=== PATIENT | female | born 1965 | race Caucasian/White ===

== ENCOUNTER 2019-01-26 21:05 | Observation (INO) ==
[2019-01-26] MEDS ORDERED: *HR* Heparin 5,000 UNIT/ML VIAL IVP PRN (23:58)
[2019-01-26] MEDS ORDERED: Nitroglycerin 0.4 MG TAB.SUBL SL PRN (23:58)
[2019-01-27 01:02] LABS: Hematocrit 36.3 % (35.3-44.9); Hemoglobin 13.2 g/dL (11.5-15.4); Mean Corpuscular HGB Conc 36.4 g/dL (31.6-35.5); Mean Corpuscular Hemoglobin 30.8 pg (28.0-33.3); Mean Corpuscular Volume 84.8 fL (83.0-100.0); Platelet Count 412 K/mcL (140-400); Red Blood Count 4.28 M/mcL (3.82-4.97); Red Cell Distribution Width 12.2 % (11.5-14.5); White Blood Count 9.2 K/mcL (4.3-11.1)
[2019-01-27 01:07] LABS: Prothrombin Time 11.8 Seconds (9.4-12.1)
[2019-01-27 01:24] LABS: Troponin I 1.01 ng/mL (< 0.04)
[2019-01-27 02:13] LABS: Alanine Aminotransferase 32 Units/L (7-52); Albumin 4.2 g/dL (3.5-5.7); Albumin/Globulin Ratio 1.7 (1.1-2.2); Alkaline Phosphatase 84 Units/L (34-104); Aspartate Amino Transferase 22 Units/L (13-39); BUN/Creatinine Ratio 13 (6-26); Bilirubin,Total 0.4 mg/dL (0.3-1.0); Blood Urea Nitrogen 9 mg/dL (6-20); Calcium 9.5 mg/dL (8.6-10.3); Carbon Dioxide 20 mEq/L (23-29); Chloride 111 mEq/L (98-107); Globulin 2.5 g/dL (2.4-3.5); Glucose 109 mg/dL (70-105); Osmolality,Calculated 293 (280-300); Potassium 3.6 mEq/L (3.5-5.1); Sodium 142 mEq/L (136-145); Total Protein 6.7 g/dL (6.4-8.9); eGFR For African Americans > 60 (> 60); eGFR For Non-African Americans > 60 (> 60)
[2019-01-27] MEDS: Heparin 25,000 UNIT/250 ML D5W 25,000 UNIT/250 ML IV.SOLN IVC SCH ×2 (02:23→16:55)
[2019-01-27] MEDS: *HR* Heparin 5,000 UNIT/ML VIAL IVP PRN ×2 (02:33→16:21)
[2019-01-27] MEDS ORDERED: Isovue-370 500 ML BOTTLE IVP ONE (02:37)
[2019-01-27] MEDS ORDERED: Naloxone 0.4 MG/ML INJ IVP PRN (03:03)
[2019-01-27] MEDS ORDERED: Ondansetron 4 MG/2 ML VIAL IVP PRN (03:03)
[2019-01-27] MEDS ORDERED: traMADol 50 MG TABLET PO PRN (03:03)
[2019-01-27] MEDS ORDERED: Loratadine/Pseudophed (12 HR) 1 EACH TABLET PO PRN (05:54)
[2019-01-27 07:30] LABS: Chol/HDL Ratio 3.7 (0-4.9); Magnesium 1.9 mg/dL (1.6-2.6); Phosphorous 3.4 mg/dL (2.7-4.5)
[2019-01-27 07:36] LABS: INR 1.1; Prothrombin Time 12.7 Seconds (9.4-12.1)
[2019-01-27] MEDS: Aspirin Enteric Coated 81 MG Tablet PO SCH (09:46)
[2019-01-27] MEDS: Metoprolol XL (24 HR) Succ 25 MG TAB.ER.24H PO SCH (09:46)
[2019-01-27] MEDS ORDERED: Loratadine 10 MG TABLET PO PRN (12:43)
[2019-01-27] MEDS: Acetaminophen 325 MG TABLET PO PRN ×2 (16:57→22:06)
[2019-01-28 04:38] LABS: Basophils % 0.6 %; Eosinophils # 0.1 K/mcL (0.0-0.6); Eosinophils % 2.1 %; Hematocrit 39.1 % (35.3-44.9); Hemoglobin 13.3 g/dL (11.5-15.4); Immature Granulocytes % 0.4 % (0-4); Lymphocytes # 1.8 K/mcL (0.6-4.6); Lymphocytes % 27.3 %; Mean Corpuscular Hemoglobin 30.6 pg (28.0-33.3); Mean Corpuscular Volume 90.1 fL (83.0-100.0); Mean Platelet Volume 9.6 fL (9.4-12.4); Monocytes # 0.5 K/mcL (0.0-1.3); Monocytes % 7.9 %; Neutrophils # 4.2 K/mcL (1.6-8.9); Platelet Count 363 K/mcL (140-400); Red Blood Count 4.34 M/mcL (3.82-4.97); Segmented Neutrophils % 61.7 %; White Blood Count 6.7 K/mcL (4.3-11.1)
[2019-01-28 05:05] LABS: BUN/Creatinine Ratio 19 (6-26); Blood Urea Nitrogen 15 mg/dL (6-20); Calcium 9.4 mg/dL (8.6-10.3); Carbon Dioxide 21 mEq/L (23-29); Chloride 109 mEq/L (98-107); Glucose 98 mg/dL (70-105); Osmolality,Calculated 289 (280-300); Potassium 3.7 mEq/L (3.5-5.1); Sodium 139 mEq/L (136-145); eGFR For African Americans > 60 (> 60); eGFR For Non-African Americans > 60 (> 60)
[2019-01-28] MEDS: Metoprolol XL (24 HR) Succ 25 MG TAB.ER.24H PO SCH (08:31)
[2019-01-28] MEDS: Aspirin Enteric Coated 81 MG Tablet PO SCH (08:31)
[2019-01-28] MEDS ORDERED: 0.9 % Sodium Chloride 1,000 ML ONE ×2 (14:30→14:33)
[2019-01-28] MEDS ORDERED: Verapamil 5 MG/2 ML VIAL ONE (14:30)
[2019-01-28] MEDS ORDERED: Heparin 1,000 UNITS/500 mL 500 ML ONE (14:31)
[2019-01-28] MEDS ORDERED: ISOVUE-370 200 ML INFUS..BTL ONE (14:31)
[2019-01-28] MEDS ORDERED: *HR* Heparin 10,000 UNIT/10 ML VIAL ONE (14:31)
[2019-01-28] MEDS ORDERED: Nitroglycerin 1,000 MCG/10 ML VIAL IV ONE (14:31)
[2019-01-28] MEDS ORDERED: *HR* Midazolam HCl 2 MG/2 ML VIAL ONE (14:33)
[2019-01-28 15:36] VITALS: BP 143/81
[2019-01-28] MEDS: Acetaminophen 325 MG TABLET PO PRN (15:43)
[2019-01-30 19:00] LABS: FACV Specimen WHOLE BLOOD
[2019-01-31 12:07] LABS: Fac V Leiden R506Q Mut Result NEGATIVE
== END 2019-01-28 19:00 | disposition home or self-care (01) ==
LOC: 2NENU
PROVIDERS: ADMIT Internal Medicine; ATTEND Internal Medicine